=== PATIENT | female | born 1985 | race Caucasian/White ===

== ENCOUNTER 2018-10-12 17:36 | Observation (INO) | payer OTHER ==
[~2018-10-12] VITALS: Ht 175.3 cm; Wt 170.1 kg
[~2018-10-12 17:36] MED LIST changes: -ASPI-757 PO; -CEPH500T7 PO; -FERR159T PO; -OXCA300T59 PO; -OXYC-865 PO
--- NOTE | 2018-10-12 17:43 | ER Report ---
History and Physical Time Seen By MD: 17:43 HPI/ROS CHIEF COMPLAINT: Possible ankle fracture HISTORY OF PRESENT ILLNESS: This is a 33-year-old female presents to the emergency department via EMS for a possible right ankle fracture. Patient states that about 30 minute prior to arrival she was walking and a rubber tile that was on a stair, slipped, from under her left foot causing her to fall and her right foot rolled inward, causing severe pain and deformity of the ankle. EMS was called. EMS did give her 100 g of IV fentanyl prior to arrival. She denies hitting her head, she states she fell onto her bottom. No nausea or vomiting. No visual changes. No chest pain or shortness of breath. There is an obvious deformity to the right ankle, with what appears to be an open fracture on the medial aspect with adipose tissue. REVIEW OF SYSTEMS: Constitutional: No fever, no chills. Eyes: No discharge. ENT: No sore throat. Cardiovascular: No chest pain, no palpitations. Respiratory: No cough, no shortness of breath. Gastrointestinal: No abdominal pain, no vomiting. Genitourinary: No hematuria. Musculoskeletal: As above. Skin: No rashes. Neurological: No headache. Allergies: Coded Allergies: No Known Allergies (Verified Allergy, Unknown, 10/12/18) Home Meds Reported Medications Ferrous Sulfate, Dried (IRON) 159 Mg Tablet.er, 159 MG PO QDAY 10/12/18 Oxcarbazepine (OXCARBAZEPINE) 300 Mg Tablet, 300 MG PO QDAY 10/12/18 Multivitamin (DAILY MULTIPLE VITAMIN) 1 Each Tablet, 1 EACH PO 10/04/14 Citalopram Hydrobromide (CITALOPRAM HBR) 20 Mg Tablet, 40 MG PO QDAY, #5 TAB TAKE 1 TABLET BY MOUTH EVERY DAY 10/04/14 Past Medical/Surgical History The patient has no significant past medical history. Reviewed Nurses Notes: Yes Hx Smoking: No Smoking Status: Never Smoker Hx Substance Use Disorder: No Hx Alcohol Use: No Constitutional Vital Sign - Last 24 Hours 10/12/18 10/12/18 10/12/18 10/12/18 17:36 17:38 17:45 17:45 Temp 97.7 Pulse 60 62 Resp 14 B/P (MAP) 136/96 (109) 144/104 (117) 144/104 Pulse Ox 93 O2 Delivery Room Air 10/12/18 10/12/18 10/12/18 10/12/18 18:00 18:06 18:15 18:30 Pulse 61 Resp 8 B/P (MAP) 125/87 (100) 171/145 (154) 154/130 (138) Pulse Ox 98 10/12/18 10/12/18 18:36 18:41 Pulse 66 64 Resp 12 B/P (MAP) 141/88 (105) Pulse Ox 97 97 Physical Exam General Appearance: The patient is alert, has no immediate need for airway protection and no signs of toxicity. Eyes: Pupils equal and round no pallor or injection. ENT, Mouth: Mucous membranes are moist. Respiratory: There are no retractions, lungs are clear to auscultation. Cardiovascular: Regular rate and rhythm, no murmurs, clicks or rubs. Gastrointestinal: Abdomen is round, soft and non tender, no masses, bowel sounds normal. Neurological: Alert and oriented 4. Moving all extremities. Following all commands. No focal neuro deficits. Skin: 0.5 cm open wound to the medial malleolus, with adipose tissue exposed. There is also an abrasion to the anterior aspect of the distal leg. Musculoskeletal: Neck is supple non tender. Extremities obvious deformity with appears to be a posterior and lateral dislocation to the right ankle, CMS intact, capillary refill slightly delayed when compared to the left foot, ~4-5sec. DIFFERENTIAL DIAGNOSIS: After history and physical exam differential diagnosis was considered for dislocation, fracture, open fracture. Medical Decision Making Data Points Result Diagram: 10/12/18185610/12/181856 Laboratory Hematology Test 10/12/18 18:57 Red Blood Count 5.04 M/uL (4.17-5.56) Mean Corpuscular Volume 83.8 fL (80.0-96.0) Mean Corpuscular Hemoglobin 27.7 pg (26.0-33.0) Mean Corpuscular Hemoglobin Concent 33.1 g/dL (32.0-36.0) Red Cell Distribution Width 13.4 % (11.5-14.5) Mean Platelet Volume 8.2 fL (7.2-11.1) Neutrophils (%) (Auto) 77.1 % (39.4-72.5) Lymphocytes (%) (Auto) 17.0 % (17.6-49.6) Monocytes (%) (Auto) 4.8 % (4.1-12.4) Eosinophils (%) (Auto) 0.5 % (0.4-6.7) Basophils (%) (Auto) 0.6 % (0.3-1.4) Nucleated RBC Relative Count (auto) 0.0 /100WBC Neutrophils # (Auto) 11.1 K/uL (2.0-7.4) Lymphocytes # (Auto) 2.5 K/uL (1.3-3.6) Monocytes # (Auto) 0.7 K/uL (0.3-1.0) Eosinophils # (Auto) 0.1 K/uL (0.0-0.5) Basophils # (Auto) 0.1 K/uL (0.0-0.1) Nucleated RBC Absolute Count (auto) 0.00 K/uL Sodium Level 137 mmol/L (137-145) Potassium Level 4.0 mmol/L (3.5-5.0) Chloride Level 105 mmol/L (98-107) Carbon Dioxide Level 24 mmol/L (22-31) Blood Urea Nitrogen 12 mg/dl (7-18) Creatinine 0.60 mg/dl (0.52-1.04) Glomerular Filtration Rate Calc > 60.0 Random Glucose 107 mg/dl (75-110) Calcium Level 8.6 mg/dl (8.4-10.2) Total Bilirubin 0.4 mg/dl (0.2-1.3) Aspartate Amino Transf (AST/SGOT) 22 U/L (0-35) Alanine Aminotransferase (ALT/SGPT) 30 U/L (0-56) Alkaline Phosphatase 112 U/L (0-126) Total Protein 6.9 g/dl (6.3-8.2) Albumin 4.0 g/dl (3.5-5.0) Chemistry Test 10/12/18 18:57 White Blood Count 14.4 k/uL (4.5-11.0) Red Blood Count 5.04 M/uL (4.17-5.56) Hemoglobin 14.0 g/dL (12.0-16.0) Hematocrit 42.2 % (34.0-47.0) Mean Corpuscular Volume 83.8 fL (80.0-96.0) Mean Corpuscular Hemoglobin 27.7 pg (26.0-33.0) Mean Corpuscular Hemoglobin Concent 33.1 g/dL (32.0-36.0) Red Cell Distribution Width 13.4 % (11.5-14.5) Platelet Count 259 K/uL (150-450) Mean Platelet Volume 8.2 fL (7.2-11.1) Neutrophils (%) (Auto) 77.1 % (39.4-72.5) Lymphocytes (%) (Auto) 17.0 % (17.6-49.6) Monocytes (%) (Auto) 4.8 % (4.1-12.4) Eosinophils (%) (Auto) 0.5 % (0.4-6.7) Basophils (%) (Auto) 0.6 % (0.3-1.4) Nucleated RBC Relative Count (auto) 0.0 /100WBC Neutrophils # (Auto) 11.1 K/uL (2.0-7.4) Lymphocytes # (Auto) 2.5 K/uL (1.3-3.6) Monocytes # (Auto) 0.7 K/uL (0.3-1.0) Eosinophils # (Auto) 0.1 K/uL (0.0-0.5) Basophils # (Auto) 0.1 K/uL (0.0-0.1) Nucleated RBC Absolute Count (auto) 0.00 K/uL Glomerular Filtration Rate Calc > 60.0 Calcium Level 8.6 mg/dl (8.4-10.2) Total Bilirubin 0.4 mg/dl (0.2-1.3) Aspartate Amino Transf (AST/SGOT) 22 U/L (0-35) Alanine Aminotransferase (ALT/SGPT) 30 U/L (0-56) Alkaline Phosphatase 112 U/L (0-126) Total Protein 6.9 g/dl (6.3-8.2) Albumin 4.0 g/dl (3.5-5.0) EKG/Imaging Imaging Location: [facility] [place] Patient: Samantha Dixon : 1985 Visit/Account:[id number] Date of Sevice: 10/12/2018 TIBIA FIBULA RIGHT HISTORY: Fall. Fracture. COMPARISON: None FINDINGS: Complex fracture dislocation at the ankle discussed on ankle x-ray examination including a comminuted, mildly displaced fracture the distal fibula. No proximal tibial or fibular fracture. IMPRESSION: 1. Complex fracture dislocation at the ankle including a comminuted, mildly displaced fracture of the distal fibula. Report Dictated By: Johnathon Oates MD at 10/12/2018 7:03 PM Report E-Signed By: Johnathon Oates MD at 10/12/2018 7:04 PM WSN:[email or web address] Location: [facility] [place] Patient: Smaantha Dixon : 1985 Visit/Account:[id number] Date of Sevice: 10/12/2018 KNEE 3 VIEW RIGHT HISTORY: Fall COMPARISON: None FINDINGS: Right knee: No acute fracture or dislocation. No significant degenerative changes. No evidence of AVN. No joint effusion. No loose body. IMPRESSION: 1. Normal Report Dictated By: Johnathon Oates MD at 10/12/2018 7:02 PM Report E-Signed By: Johnathon Oates MD at 10/12/2018 7:02 PM WSN:[email or web address] Location: [facility] [place] Patient: Samantha Dixon : 1985 Visit/Account:[id number] Date of Sev: 10/12/2018 ANKLE 3 VIEW MIN RIGHT HISTORY: Fall. Injury. COMPARISON: None FINDINGS: Complex fracture dislocation of the ankle with anterior-medial disloc ation of the tibia in relation to the talus. Comminuted, mildly displaced fracture of the distal fibular shaft. Marked widening of the syndesmosis. IMPRESSION: 1. Complex fracture dislocation at the ankle with marked widening of the syndesmosis. Report Dictated By: Johnathon Oates MD at 10/12/2018 6:56 PM Report E-Signed By: Johnathon Oates MD at 10/12/2018 7:01 PM [facility] ED Course/Re-evaluation Clinical Indication for ER IV: Hydration, IV Access ED Course Patient was admitted to room. A history and physical were obtained. Differential diagnoses were considered. An IV was started via EMS, patient received 100 g IV fentanyl and round. CBC showing white count 14.4, likely a stress response otherwise labs unremarkable. Showing Upon arrival there was an obvious deformity to the right foot and ankle. An x-ray of the right ankle showing a complex fracture dislocation at the ankle including a comminuted, mildly displaced fracture of the distal fibula, open wound with adipose tissue to the right medial malleolus. A 1 L normal saline bolus was given. 1 g of Ancef was given. Patient's tetanus was updated. Patient was given 4 mg IV Zofran, total of 2 mg IV Dilaudid while in the emergency department. Last oral intake was at 1:30 this afternoon. I did review the results with the patient, I also contacted Dr. Ayala, the patient is going to the OR. 10/12/2018 7:15:34 pm I did speak with Dr. Ayala, the orthopedist operations lead he is going to review the images. 10/12/2018 8:38:21 pm the patient is going to the OR. Decision to Disposition Date: Oct 12, 2018 Decision to Disposition Time: 20:38 Depart Departure Latest Vital Signs Vital Signs Date Time Temp Pulse Resp B/P (MAP) Pulse Ox O2 Delivery O2 Flow Rate FiO2 10/12/18 18:41 64 12 141/88 (105) 97 10/12/18 17:45 97.7 Room Air Impression: Primary Impression: Fracture dislocation of right ankle Condition: Improved Disposition: ADMIT FROM ER TO OR Problem Qualifiers Primary Impression: Fracture dislocation of right ankle Encounter type: initial encounter Fracture type: open Open fracture type: open type I or II Qualified Codes: S82.891B - Other fracture of right lower leg, initial encounter for open fracture type I or II MIKE CATALAN JAVA LEAD DEVELOPER- Oct 12, 2018 17:43
[2018-10-12] MEDS ORDERED: NS(*) 0.9% 1000 ML BAG 1,000 ML IV ONE (17:50)
[2018-10-12] MEDS ORDERED: ONDANSETRON 4 MG/2 ML VIAL IVP ONE (17:50)
[2018-10-12] MEDS ORDERED: HYDROMORPHONE HCL 1 MG/ML SYRINGE IVP ONE ×2 (17:50→19:15)
[2018-10-12] MEDS ORDERED: DIPHTH/TETANUS/ACEL. PERTUSSIS IM ONLY ONE (17:50)
[2018-10-12] MEDS ORDERED: ceFAZolin(*) 1 GM VIAL 1 GM in NS(*) 0.9% 100 ML ADDVANT BAG 100 ML IV ONE (17:50)
[2018-10-12] MEDS ORDERED: FERR159T PO (17:55)
[2018-10-12] MEDS ORDERED: OXCA300T59 PO (17:55)
--- NOTE | 2018-10-12 19:05 | RADIOLOGY IMAGING REPORT ---
FACILITY: [facility] - [place] PATIENT NAME: Samantha Dixon : 1985 MR: [id number] V: [id number] EXAM DATE: ORDERING PHYSICIAN: MIKE CATALAN TECHNOLOGIST: Location: [facility] [place] Patient: Samantha Dixon : 1985 Visit/Account:[id number] Date of Sevice: 10/12/2018 ANKLE 3 VIEW MIN RIGHT HISTORY: Fall. Injury. COMPARISON: None FINDINGS: Complex fracture dislocation of the ankle with anterior-medial dislocation of the tibia in relation to the talus. Comminuted, mildly displaced fracture of the distal fibular shaft. Marked wi dening of the syndesmosis. IMPRESSION: 1. Complex fracture dislocation at the ankle with marked widening of the syndesmosis. Report Dictated By: Johnathon Oates MD at 10/12/2018 6:56 PM Report E-Signed By: Johnathon Oates MD at 10/12/2018 7:01 PM WSN:[email or web address]
--- NOTE | 2018-10-12 19:06 | RADIOLOGY IMAGING REPORT ---
FACILITY: [facility] - [place], [place] PATIENT NAME: Samantha Dixon : 1985 MR: [id number] V: [id number] EXAM DATE: ORDERING PHYSICIAN: MIKE CATALAN TECHNOLOGIST: Location: [facility] Patient: Samantha Dixon : 1985 Visit/Account:[id number] Date of Sevice: 10/12/2018 KNEE 3 VIEW RIGHT HISTORY: Fall COMPARISON: None FINDINGS: Right knee: No acute fracture or dislocation. No significant degenerative changes. No evidence of AVN . No joint effusion. No loose body. IMPRESSION: 1. Normal Report Dictated By: Johnathon Oates MD at 10/12/2018 7:02 PM Report E-Signed By: Johnathon Oates MD at 10/12/2018 7:02 PM WSN:[email or web address]
--- NOTE | 2018-10-12 19:08 | RADIOLOGY IMAGING REPORT ---
FACILITY: [facility] - [place] PATIENT NAME: Samantha Dixon : 1985 MR: [id number] V: [id number] EXAM DATE: ORDERING PHYSICIAN: MIKE CATALAN TECHNOLOGIST: Location: [facility] [place] Patient: Samantha Dixon : 1985 Visit/Account:[id number] Date of Sevice: 10/12/2018 TIBIA FIBULA RIGHT HISTORY: Fall. Fracture. COMPARISON: None FINDINGS: Complex fracture dislocation at the ankle discussed on ankle x-ray examination including a comminuted, mildly displaced fracture the distal fibula. No proximal tibial or fibular fracture. IMPRESSION: 1. Complex fracture dislocation at the ankle including a comminuted, mildly displaced fracture of th e distal fibula. Report Dictated By: Johnathon Oates MD at 10/12/2018 7:03 PM Report E-Signed By: Johnathon Oates MD at 10/12/2018 7:04 PM WSN:[email or web address]
[2018-10-12 19:09] LABS: PLATELET COUNT, AUTOMATED 259 K/uL (150-450)
[2018-10-12] MEDS ORDERED: NORMOSOL R SOLN(*) 1000 ML BAG 1,000 ML IV ONE (19:54)
[2018-10-12] MEDS ORDERED: FAMOTIDINE(*) 20MG/50ML PREMIX 50 ML IVPB ONE (19:54)
[2018-10-12] MEDS ORDERED: KETAMINE HCL-NS 50 MG/5 ML SYR ONE (20:04)
[2018-10-12] MEDS ORDERED: LIDOCAINE MPF 1% 5 ML VIAL ONE (20:04)
[2018-10-12] MEDS ORDERED: PROPOFOL EMUL(*) 10MG/ML 20 ML 20 ML ONE (20:04)
[2018-10-12] MEDS ORDERED: fentaNYL CITR 100 MCG/2 ML AMP ONE (20:04)
[2018-10-12] MEDS ORDERED: ONDANSETRON 4 MG/2 ML VIAL ONE (20:04)
[2018-10-12] MEDS ORDERED: DEXAMETHASONE SOD PHOS 10MG/ML ONE (20:04)
[2018-10-12] MEDS ORDERED: LIDOCAINE 2% IV 100 MG/5ML SYR ONE (20:05)
[2018-10-12] MEDS ORDERED: SUCCINYLCHOL CHL 200MG/10ML VL ONE (20:21)
[2018-10-12] MEDS ORDERED: ROPIVACAINE 0.2% 20 ML VIAL ONE (20:54)
[2018-10-12] MEDS ORDERED: BUPIVACAIN 0.25% INJ 50ML VIAL ONE (20:54)
[2018-10-12] MEDS ORDERED: SUGAMMADEX SOD 200 MG/2 ML SDV ONE (22:37)
--- NOTE | 2018-10-12 23:08 | RADIOLOGY IMAGING REPORT ---
FACILITY: [facility] [place] PATIENT NAME: Samantha Dixon : 1985 MR: [id number] V: [id number] EXAM DATE: ORDERING PHYSICIAN: MONICA AYALA TECHNOLOGIST: Location: [facility] [place] Patient: Samantha Dixon : 1985 Visit/Account:[id number] Date of Sevice: 10/12/2018 C-ARM FLUORO 1 HR Indication: Open reduction internal fixation right ankle. Procedure: Fluoroscopic guidance was provided for Dr. Ayala. Fluoroscopy dose: 0.4072 Gycm2 dose area product Findings: Images demonstrate a fracture of the distal fibular diaphysis with subsequent placement of a plate and screws and improved alignment. 2 long screws traverse the tibia and fibula. IMPRESSION: Fluoroscopy was provided. Report Dictated By: Juany Tim at 10/12/2018 11:03 PM Report E-Signed By: Juany Tim at 10/12/2018 11:05 PM WSN:[id number]
[2018-10-13] VITALS (13 sets, daily range): BP systolic 113–143; BP diastolic 66–94; Ht 175.3 cm; Wt 170.1 kg
[2018-10-13] MEDS ORDERED: MORPHINE 2 MG/ML SYR ONE (00:40)
[2018-10-13] MEDS ORDERED: ceFAZolin(*) 2GM/D5W 50ML 50 ML IVPB ONE (01:14)
[2018-10-13] MEDS ORDERED: MORPHINE 2 MG/ML SYR IVP PRN (01:20)
[2018-10-13] MEDS ORDERED: ONDANSETRON 4 MG/2 ML VIAL IVP PRN (01:20)
[2018-10-13] MEDS ORDERED: IBUPROFEN 800 MG TAB PO PRN (01:20)
[2018-10-13] MEDS ORDERED: FLUSH 10 ML SYR IVP PRN (01:20)
[2018-10-13] MEDS ORDERED: MAGNESIUM HYDROXIDE* 30ML UDCP PO PRN (01:20)
[2018-10-13] MEDS ORDERED: NORMOSOL R SOLN(*) 1000 ML BAG 1,000 ML IV PRN (01:25)
[2018-10-13] MEDS: ceFAZolin(*) 2GM/D5W 50ML 50 ML IVPB SCH ×3 (01:40→16:19)
--- NOTE | 2018-10-13 02:44 | Hospitalist Progress Note ---
Subjective Progress Notes Subjective Patient sen post-op. Reviewed PMHx (depression, obesity) and medications (citalopram, oxcarbazepine). At present, she reports surgical site pain and some dry mouth, but denies any other complaints - no CP/SOB/N/V. She has no history of DVT/PE. She does not smoke. Physical Exam Vital Signs Date Time Temp Pulse Resp B/P (MAP) Pulse Ox O2 Delivery O2 Flow Rate FiO2 10/13/18 02:00 71 16 138/83 (101) 92 Nasal Cannula 2.0 10/13/18 01:00 98.0 Intake and Output 10/13/18 07:00 Intake Total 4100 ml Output Total 50 ml Balance 4050 ml Intake Oral 1200 ml IV Total 2900 ml Output Estimated Blood Loss 50 ml # Voids 1 General Appearance: Alert, Awake Cardiovascular: Regular Rate and Rhythm Respiratory: Clear to Auscultation Psych: Alert & Oriented X3 Result Diagram: 10/12/18185610/12/181856 Assessment and Plan Problems: (1) Depression Status: Chronic Assessment & Plan: Will continue her citalopram 40mg daily and oxcarbazepine 300mg daily. (2) Ankle fracture Status: Acute Assessment & Plan: She will be at some increased risk for DVT due to her obesity, but it appears she will be mobilizing fairly well. It may be reasonable to use aspirin 325mg daily to reduce her risk. Exam Sepsis Risk: No Definite Risk SINDY WRIGHT MD Oct 13, 2018 02:44
[2018-10-13] MEDS ORDERED: PROMETHAZINE 25 MG/ML 1 ML AMP IVP PRN (02:45)
--- NOTE | 2018-10-13 05:51 | HISTORY AND PHYSICAL ---
DATE OF ADMISSION: October 13, 2018 HISTORY OF PRESENT ILLNESS Ms. Dixon is a 33-year-old obese female who was seen evaluated in the emergency room and found to have an open, displaced right ankle fracture-dislocation. Orthopedics was consulted. She had no other complaints. She was walking tonight and tripped on her steps and fell. She inverted her ankle and was unable to ambulate. PAST MEDICAL HISTORY 1. Morbid obesity. 2. Depression. MEDICATIONS 1. Citalopram. 2. Oxcarbazepine. ALLERGIES No known drug allergies. PAST SURGICAL HISTORY Denies. SOCIAL HISTORY Denies tobacco or alcohol. 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 She lives in a trailer with about three steps. REVIEW OF SYSTEMS Positive for right ankle pain. PHYSICAL EXAMINATION VITAL SIGNS: Blood pressure 142/79, pulse 73, respirations 14. HEENT: Within normal limits. CHEST: Clear to auscultation. HEART: Regular rate and rhythm. ABDOMEN: Obese, soft, nontender, nondistended. EXTREMITIES: Demonstrate a severe deformity of the right ankle. The foot is turned about 90 degrees and there is tibiotalar dislocation. There is a small 1 cm laceration over the medial malleolar region with some adipose tissue. FHL and EHL are very difficult for her to perform, but she can perform, and she has some slight diminished sensations in the deep and superficial peroneal nerves; can feel her tibial nerve. LABORATORY DATA White count 14.4, hematocrit 42.2, platelets 259. Glucose 107. X-rays demonstrate a significantly comminuted fibula fracture with disrupted syndesmosis and tibiotalar dislocation. ASSESSMENT A 33-year-old female with open tibiotalar fracture-dislocation. PLAN At this point, discussed the risks, benefits, alternatives, and possible complications of surgical and nonsurgical intervention with her, and she wished to proceed with surgical intervention. Will plan on ORIF of a right fibula fracture as well as syndesmosis, as well as I and D of the open fracture, reduction of the tibiotalar dislocation, as soon as possible. SRIDHAR
--- NOTE | 2018-10-13 06:25 | OPERATIVE REPORT 1 ---
EVENT DATE: October 12, 2018 SURGEON: Wale Ayala MD ANESTHESIOLOGIST: Quinten Kuhn DO ANESTHESIA: LMA. JUNIOR HIGH SCHOOL TEACHER: Bo Bernal PA-C PREOPERATIVE DIAGNOSES 1. Open distal fibula fracture with syndesmotic disruption. 2. Tibiotalar dislocation. POSTOPERATIVE DIAGNOSES 1. Open distal fibula fracture with syndesmotic disruption. 2. Tibiotalar dislocation 3. Open right ankle fracture-dislocation. PROCEDURE PERFORMED 1. Open reduction and internal fixation, right comminuted fibula fracture. 2. Open reduction and internal fixation, syndesmosis. 3. Reduction, tibiotalar dislocation. 4. Irrigation and debridement, open fracture and open tibiotalar joint. ESTIMATED BLOOD LOSS Minimal. DRAINS None. SPECIMENS None. COMPLICATIONS None. IMPLANTS USED Synthes one third tubular 10-hole plate with nine fully threaded 3.5 cortical screws. Fluoroscopy was utilized. TOURNIQUET TIME See anesthesia record. HISTORY Ms. Dixon is a 33-year-old morbidly obese female who, unfortunately, sustained a fall, sustaining a fracture-dislocation of her right ankle, which was open medially. She was seen and evaluated in the orthopedic surgery clinic, found to have a medial laceration with communication to the joint and a significant comminuted distal fibular fracture with tibiotalar dislocation. Following discussion of risks, benefits, alternatives, and possible complications of surgical and nonsurgical intervention, she wished to proceed with surgical intervention. DESCRIPTION OF PROCEDURE Patient was brought to the operating room and placed on the operating table in the supine position. Proper time-out was performed, identifying patient, limb of surgery, and surgical procedure. Patient was given preoperative IV antibiotics and underwent LMA anesthesia. A well-padded upper thigh tourniquet was placed on the right lower extremity. The right lower extremity was prepped and draped in sterile orthopedic fashion. A double prep was prepped with Hibiclens and ChloraPrep. Once complete, the medial laceration was extended anterior and posterior in line with the laceration. The edges were slightly macerated, but this was minimal. There was no gross contamination, but this dissected directly down to the tibiotalar joint, which we could palpate. The wound was copiously irrigated with 6L of sterile saline and pulsed lavage. This included the open wound as well as the tibiotalar joint. Once this was completely irrigated and debrided, the soft tissue was closed with 3-0 nylon non-inverted vertical mattress sutures. This was then dried and covered with a Tegaderm OpSite. Once complete, the fracture was identified under fluoroscopic visualization. A lateral incision was made extending from the syndesmosis proximally. The fracture had already dissected the majority of the soft tissues, and this was bluntly dissected proximally and distally. The fracture was identified and was severely comminuted, more so than we could appreciate on the fracture. There were two large butterfly fragments posteriorly, and then comminution anteriorly with fragments in the soft tissue. The fracture was distracted and fracture hematoma was cleared with suctioning, irrigation, a curette and #15 blade scalpel. We then performed a closed reduction on the fracture. Again, we were missing bone fragments anteriorly that did not jurado in, and posteriorly there were two large butterfly fragments. These were keyed in with a pointed reduction tenaculum. We brought our fibula out to length and checked this under AP and lateral view, and felt it to be in acceptable alignment. A 10-hole plate was then placed laterally and contoured to the fibula. This was right at the spiraling and the rotation of the fibula, so we tried to match this up as anatomically as possible. Once this was performed, this was secured proximally, checked under fluoroscopic visualization, and we felt like we were out to length, had good alignment, and this was then fixed distally. We then passed three #2 FiberWire sutures around the butterfly fragments, since they were too small to incorporate with bony fixation, and we passed two of these around the butterfly fragments, trying to incorporate these and get them juxtaposed to the fracture site. We then placed one lag screw through the plate utilizing 2.5 and 3.5 drill bit technique, and this had good purchase. The remaining screw holes were filled with fully threaded cortical screws. We started to drift a little bit posterior on the proximal aspect of the fracture fragment. We had to in order to get our alignment proper for the distal syndesmotic screw fixation. Once this was complete, our attention was drawn to the syndesmotic disruption. The tibiotalar joint was reduced with the ankle in 90 degrees of dorsiflexion with a Regan Margarito tong. This was checked on our mortise view, and once we had a symmetric tibiotalar joint, the 2.5 drill bit was utilized to drill four cortices, and fully threaded cortical screws were placed, two of them, which were four cortices. Once this was complete, we removed the Regan Margarito tong and compared. There was no diastasis of the syndesmosis, and the mortise was symmetric. A Cotton test was performed. There was negative diastasis of the syndesmosis. Once this was complete, the wound was copiously irrigated. Zero Vicryl [id number] sutures were utilized to reapproximate soft tissue gentle over the plate. The subcutaneous tissues were closed with 2-0 Vicryl, skin reapproximated with 3-0 nylon non-inverting vertical mattress sutures. Standard postoperative dressing and three-way posterior long leg splint were applied. Ms. Dixon tolerated the procedure well, was extubated and transferred to the PACU in stable condition. She will be placed non-weightbearing. We will admit her for mobility, gait training, and IV antibiotic, and she will be admitted to our service with medicine consultation. SRIDHAR
[2018-10-13] MEDS ORDERED: ASPIRIN 325 MG TAB PO SCH (09:00)
[2018-10-13] MEDS ORDERED: ASPI-757 PO (10:55)
--- NOTE | 2018-10-13 10:56 | Hospitalist Progress Note ---
Subjective Progress Notes Subjective She was admitted post-operative ankle fracture repair. She has no complaints this morning. She had no acute events overnight. Patient Complains of: Cardiovascular: No: Chest Pain Respiratory: No: Shortness of Breath Physical Exam Vital Signs Date Time Temp Pulse Resp B/P (MAP) Pulse Ox O2 Delivery O2 Flow Rate FiO2 10/13/18 06:59 98.6 76 16 138/94 (109) 95 Nasal Cannula 10/13/18 06:14 2.0 Intake and Output 10/13/18 06:59 Intake Total 5800 ml Output Total 50 ml Balance 5750 ml Intake Oral 1800 ml IV Total 4000 ml Output Estimated Blood Loss 50 ml # Voids 3 General Appearance: Alert, Awake, No Acute Distress, Afebrile Neuro: No Gross deficits Cardiovascular: Regular Rate and Rhythm Respiratory: No Respiratory Distress, Clear to Auscultation Psych: Alert & Oriented X3, Appropriate Mood & Affect Result Diagram: 10/12/18185610/12/181856 Assessment and Plan Problems: (1) Ankle fracture Status: Acute Assessment & Plan: She will be at some increased risk for DVT due to her obesity, but it appears she will be mobilizing fairly well. It may be reasonable to use aspirin 325mg daily to reduce her risk. (2) Depression Status: Chronic Assessment & Plan: Will continue her citalopram 40mg daily and oxcarbazepine 300mg daily. (3) Morbid obesity with BMI of 50.0-59.9, adult Exam Sepsis Risk: No Definite Risk GEORGETTE KIM THEATRE INSTRUCTOR Oct 13, 2018 10:56
--- NOTE | 2018-10-13 14:20 | NUR ---
Physical Therapy Impression PT eval. Pt demonstrates safety with transfers and compliance with NWB. Pt educated on appropriate equipment, provided a list, and scripts requested from MD for equipment. Discussed safest strategy for stair negotiation with returned verbal understanding. Pt safe for DC from a mobility standpoint. Physical Therapy Goals Patient's Goals
[2018-10-13] MEDS ORDERED: CEPH500T7 PO (16:34)
[2018-10-13] MEDS ORDERED: OXYC-865 PO (16:35)
[2018-10-13] MEDS ORDERED: OXcarbazepine 300 MG TAB PO SCH (21:00)
[2018-10-13] MEDS ORDERED: CITALOPRAM HYDROBROM 20 MG TAB PO SCH (21:00)
--- NOTE | 2018-10-14 10:28 | DISCHARGE SUMMARY ---
ADMISSION DATE: October 12, 2018 DISCHARGE DATE: October 13, 2018 ADMISSION DIAGNOSES Status post incision and drainage and open reduction and internal fixation right ankle open fracture/dislocation. SURGEON Wale Ayala MD CONSULTS 1. Hospitalist service. 2. Physical Therapy. COMPLICATIONS None. HISTORY Ms. Dixon is a 33-year-old female. Unfortunately, sustained an open fracture/dislocation of her right ankle. On 10/12/18, she was brought in urgently to the operating room to undergo irrigation and debridement and ORIF of fracture/dislocation. She did well overnight, had no major events and was seen and evaluated by Physical Therapy who came up with a discharge plan for mobility and following clearance from Physical Therapy, she will be discharged home. On final examination, she is afebrile, vital signs are stable. The splint in good condition. FHL and EHL are intact. Sensation and peroneal nerves are intact. Brisk capillary refill in her digits. ASSESSMENT Postop day #1 status post incision and drainage and open reduction and internal fixation right ankle fracture/dislocation. PLAN She sill be discharged to home this evening after a third antibiotic IV dose for open fracture. We have prescribed on discharge Percocet 5/325 mg 1 to 2 p.o. q 6 hours p.r.n. pain. She is to strictly elevated her leg. We have also given her antibiotic Keflex 500 mg q.i.d. x 2 weeks. and she is strictly non-weight bearing. Will follow up with me in 14 days. MTDD
== END 2018-10-13 16:27 | disposition home or self-care (01) ==
LOC: ER 17:41 → OR 20:39 → INTOOBSV 10-13 00:20 → MED 10-13 00:20
PROVIDERS: ADMIT Orthopaedic Surgery; ATTEND Orthopaedic Surgery
DX: S82.61XB Displaced fracture of lateral malleolus of right fibula, initial encounter for open fracture type I or II (principal); S82.891B Other fracture of right lower leg, initial encounter for open fracture type I or II; S93.04XA Dislocation of right ankle joint, initial encounter; W01.0XXA Fall on same level from slipping, tripping and stumbling without subsequent striking against object, initial encounter
CPT/HCPCS: 11010; 27792; 27829; 73562; 73590; 73610; 76000; 84703; 85025; 90471; 90715; 96365; 96367; 96375; 97163; 99285; C1713; G0378; J0330; J0690; J1100; J1170; J2001; J2270; J2405; J2704; J3010; J3490; J7030; J7050; 82040; 82247; 82310; 82374; 82435; 82565; 82947; 84075; 84132; 84155; 84295; 84450; 84460; 84520; J2795

== ENCOUNTER → 2018-10-12 | Outpatient (CLI) | payer OTHER ==
[~2018-10-12] MED LIST: ASPI-757 PO; CEPH500T7 PO; CITA-145 PO; FERR159T PO; MULT-865 PO; OXCA300T59 PO; OXYC-865 PO
[2018-10-13 14:25] VITALS: BMI 55.4
== END ==
LOC: AMB 16:46
PROVIDERS: ATTEND Nurse Practitioner
DX: M25.571 Pain in right ankle and joints of right foot (principal); S91.031A Puncture wound without foreign body, right ankle, initial encounter
CPT/HCPCS: A0425; A0433

== ENCOUNTER 2018-11-07 17:29 | Emergency (ER) | payer OTHER ==
[2018-10-13 14:25] VITALS: BMI 55.4
[~2018-11-07 17:29] MED LIST changes: +ASPI-757 PO; +CEPH500T7 PO; +FERR159T PO; +OXCA300T59 PO; +OXYC-865 PO
--- NOTE | 2018-11-07 18:36 | RADIOLOGY IMAGING REPORT ---
FACILITY: [facility] - [place] PATIENT NAME: Samantha Dixon : 1985 MR: [id number] V: [id number] EXAM DATE: ORDERING PHYSICIAN: KIT TAYLOR TECHNOLOGIST: Location: [facility] - [place] Patient: Samantha Dixon : 1985 Visit/Account:[id number] Date of Sevice: 11/07/2018 Examination: KNEE 4 VIEW RIGHT Comparison: 10/12/2018 History: fall with pain Findings: No fracture. Alignment is within normal limits. Joint spaces are preserved with minimal pat ellar pole spurring. No joint effusion. Prepatellar and pretibial soft tissue swelling. No radiopaque foreign body. IMPRESSION: 1. No right knee fracture or malalignment. 2. Soft tissue swelling. Report Dictated By: Cristo Hartmann MD at 11/07/2018 6:31 PM Report E-Signed By: Cristo Hartmann MD at 11/07/2018 6:33 PM WSN:[id number]
[2018-11-07 18:42] VITALS: BP 143/105
--- NOTE | 2018-11-07 18:50 | ER Report ---
History and Physical Time Seen By MD: 17:30 Hx. of Stated Complaint: PATIENT FELL ON TO HER RIGHT KNEE EARLIER TODAY. HPI/ROS CHIEF COMPLAINT: Right knee pain HISTORY OF PRESENT ILLNESS: 33-year-old female patient presents to emergency room with complaint of right knee pain. Patient states that she was going down the ramp outside of her house on her scooter. Patient states when she got to the bottom of the ramp the scooter twisted on her causing her to fall onto her right knee. Patient states that she had fair amount of pain but was able to get up and go to work. Patient states that after sitting for a few hours at work that she was unable to put any weight on her knee. Patient states that when she is sitting there that she has no pain. She has no pain with flexion or extension. She states pain is worse which puts weight on her knee. Patient denies any numbness or tingling. REVIEW OF SYSTEMS: Respiratory: No cough, no dyspnea. Cardiovascular: No chest pain, no palpitations. Gastrointestinal: No vomiting, no abdominal pain. Musculoskeletal: As noted above Allergies: Coded Allergies: No Known Allergies (Verified Allergy, Unknown, 10/12/18) Home Meds Active Scripts Aspirin (ASPIRIN) 325 Mg Tablet, 325 MG PO QDAY, #30 TAB Prov:GEORGETTE KIM Jeramy INFORMATION SPECIALIST 10/13/18 Reported Medications Oxycodone Hcl/Acetaminophen (PERCOCET 5-325 MG TABLET) 1 Each Tablet, 1 EACH PO Q4H PRN for pain, #42 TAB 10/13/18 Cephalexin 500 Mg Tab (KEFLEX 500 MG TAB) 500 Mg Tablet, 500 MG PO Q6H, #56 TAB 10/13/18 Ferrous Sulfate, Dried (IRON) 159 Mg Tablet.er, 159 MG PO QDAY 10/12/18 Oxcarbazepine (OXCARBAZEPINE) 300 Mg Tablet, 300 MG PO QDAY 10/12/18 Multivitamin (DAILY MULTIPLE VITAMIN) 1 Each Tablet, 1 EACH PO 10/04/14 Citalopram Hydrobromide (CITALOPRAM HBR) 20 Mg Tablet, 40 MG PO QDAY, #5 TAB TAKE 1 TABLET BY MOUTH EVERY DAY 10/04/14 Past Medical/Surgical History Patient has a past medical history of open fracture the right ankle, depression. Patient has no pertinent surgical history. Reviewed Nurses Notes: Yes Hx Smoking: No Smoking Status: Never Smoker Hx Substance Use Disorder: No Hx Alcohol Use: No Constitutional Vital Sign - Last 24 Hours 11/07/18 11/07/18 11/07/18 17:37 18:42 18:42 Temp 98.7 Pulse 85 Resp 24 22 B/P (MAP) 144/93 143/105 (118) 143/105 (118) Pulse Ox 91 93 97 O2 Delivery Room Air Room Air Physical Exam General Appearance: The patient is alert, has no immediate need for airway protection and no current signs of toxicity Respiratory: Chest is non tender, lungs are clear to auscultation. Cardiac: regular rate and rhythm Gastrointestinal: Abdomen is soft and non tender, no masses, bowel sounds normal. Musculoskeletal: Neck: Neck is supple and non tender. Extremities have full range of motion and are non tender. Patient has significant amounts swelling to the right knee. Pain seems worse on the medial aspect. No laxity noted on exam. Skin: No rashes or lesions. DIFFERENTIAL DIAGNOSIS: After history and physical exam differential diagnosis w as considered for contusion, fracture, sprain. Medical Decision Making EKG/Imaging Imaging Examination: KNEE 4 VIEW RIGHT Comparison: 10/12/2018 History: fall with pain Findings: No fracture. Alignment is within normal limits. Joint spaces are preserved with minimal patellar pole spurring. No joint effusion. Prepatellar and pretibial soft tissue swelling. No radiopaque foreign body. IMPRESSION: 1. No right knee fracture or malalignment. 2. Soft tissue swelling. Report Dictated By: Cristo Hartmann MD at 11/07/2018 6:31 PM Report E-Signed By: Cristo Hartmann MD at 11/07/2018 6:33 PM ED Course/Re-evaluation ED Course Patient was admitted to an exam room, history and physical were obtained. Differential diagnoses were considered. On examination lungs are clear, heart is regular, abdomen soft nontender. Patient has swelling and bruising to the right knee. And x-rays done of the right knee which was negative for fracture. I di scussed the findings with the patient and her . I do have concerns with patient needing to use a scooter due to her ankle fracture that she will not be able to do that with the knee being bruises it is. We discussed doing a wheelchair. Wheelchairs were not available at this time of day and so called and talked with Kemi and Gordy. Both states they have "transfer chairs" that are likely wheelchairs but don't have the big back wheels. His recommendation that she uses a wheelchair while the knee is too painful to use the scooter. She is return to the scooter when she can tolerate it. She is follow-up with her primary care provider in a week. She states ibuprofen as needed for pain. She is return to emergency room if condition worsens. Patient verbalized understanding and agreement with plan. Decision to Disposition Date: Nov 07, 2018 Decision to Disposition Time: 18:50 Depart Departure Latest Vital Signs Vital Signs Date Time Temp Pulse Resp B/P (MAP) Pulse Ox O2 Delivery O2 Flow Rate FiO2 11/07/18 18:42 143/105 (118) 97 Room Air 11/07/18 18:42 22 11/07/18 17:37 98.7 85 Impression: Primary Impression: Knee contusion Condition: Improved Disposition: HOME OR SELF-CARE Referrals: CAIT ALFONSO (PCP) Departure Forms: Medications Reconciliation, Patient Portal Information, ER Transition Record Patient Instructions: Contusion in Adults (ED) Additional Instructions: Limit activity by pain. Ice the knee 2-3 times a day for 10-15 minutes. Get plenty of rest. Continue with Ibuprofen as needed for pain. Return to the ER if condition worsens. Follow up with your primary care provider in the next week. Problem Qualifiers Primary Impression: Knee contusion Encounter type: initial encounter Laterality: right Qualified Codes: S80.01XA - Contusion of right knee, initial encounter KIT TAYLOR Nov 07, 2018 18:50
== END 2018-11-07 18:55 | disposition home or self-care (01) ==
LOC: ER 17:43
DX: S80.01XA Contusion of right knee, initial encounter (principal)
CPT/HCPCS: 73564; 99283

== ENCOUNTER → 2018-11-27 | Outpatient (CLI) | payer OTHER ==
[2018-10-13 14:25] VITALS: BMI 55.4
--- NOTE | 2018-11-27 17:56 | RADIOLOGY IMAGING REPORT ---
FACILITY: [facility] PATIENT NAME: Samantha Dixon : 1985 MR: [id number] V: [id number] EXAM DATE: ORDERING PHYSICIAN: MONICA MORAES TECHNOLOGIST: Location: [facility] - [place] Patient: Samantha Dixon : 1985 Visit/Account:[id number] Date of Sevice: 11/27/2018 MRI right knee Indication: Knee pain Comparison: None available. Technique: Multiplanar, multisequence MRI examination is performed of the right knee without contrast . Findings: Medial compartment: Small undersurface tear peripheral posterior horn medial meniscus. Minimal chondral irregularity and thinning of the mid weightbearing medial femoral condyle cartilage. Lateral compartment: Mild undersurface fraying and irregularity posterior horn and posterior horn/body junction of the lat eral meniscus. The articular cartilage surfaces are unremarkable. Patellofemoral compartment: Partial thickness fissuring and irregularity medial margin lateral facet patella cartilage with under lying subchondral edema. Bones and marrow: No acute fracture or dislocation. Ligaments and tendons: ACL and PCL are intact. The extensor mechanism is intact. The MCL is intact. The iliotibial band, biceps femoris tendon, and the fibular collateral ligament is intact The popliteus tendon is also intact. Soft tissues: Small amount of fluid suprapatellar bursa. Extensive prepatellar soft tissue swelling may relate to prepatellar post rheumatic hemorrhagic bursi tis as there is heterogeneous signal noted. IMPRESSION: 1. Small undersurface tear peripheral posterior horn medial meniscus. 2. Prominent prepatellar soft tissue swelling may relate to prepatellar hemorrhagic bursitis. 3. Significant fissuring and irregularity involving the medial margin lateral facet patella cartilage . Report Dictated By: Riaz Emmanuel MD at 11/27/2018 5:41 PM Report E-Signed By: Riaz Emmanuel MD at 11/27/2018 5:52 PM WSN:[id number]
== END ==
LOC: MRI 01:44
PROVIDERS: ATTEND Orthopaedic Surgery
DX: S83.241A Other tear of medial meniscus, current injury, right knee, initial encounter (principal)

== ENCOUNTER 2018-12-26 00:37 | Day surgery (SDC) | payer OTHER ==
[2018-10-13 14:25] VITALS: Ht 175.3 cm; Wt 172.4 kg
[~2018-12-26] VITALS: Ht 175.3 cm; Wt 172.4 kg
[~2018-12-26 00:37] MED LIST changes: +ceFAZolin(*) 1 GM VIAL 3 GM in NS(*) 0.9% 100 ML BAG 100 ML IVPB ONE
[2018-12-26] MEDS ORDERED: ceFAZolin(*) 2GM/D5W 50ML 50 ML IVPB ONE (06:15)
[2018-12-26] MEDS ORDERED: FAMOTIDINE 20 MG TAB PO ONE (06:15)
[2018-12-26] MEDS ORDERED: MIDAZOLAM 2 MG/2 ML VIAL IVP PRN (06:15)
[2018-12-26] MEDS ORDERED: ceFAZolin(*) 1 GM VIAL 3 GM in NS(*) 0.9% 100 ML BAG 100 ML IVPB ONE ×2 (06:15)
[2018-12-26] MEDS ORDERED: LIDOCAINE/SOD BICARB 8.4% SYR ID ONE (06:15)
[2018-12-26] MEDS ORDERED: NORMOSOL R SOLN(*) 1000 ML BAG 1,000 ML IV PRN (06:15)
[2018-12-26] MEDS ORDERED: ROPIVACAINE 0.2% 20 ML VIAL ONE (06:22)
[2018-12-26 06:38] VITALS: BP 139/77
[2018-12-26] MEDS ORDERED: LIDOCAINE MPF 1% 5 ML VIAL ONE (06:49)
[2018-12-26] MEDS ORDERED: ONDANSETRON 4 MG/2 ML VIAL ONE ×2 (06:49→07:17)
[2018-12-26] MEDS ORDERED: PROPOFOL EMUL(*) 10MG/ML 20 ML 20 ML ONE (06:49)
[2018-12-26] MEDS ORDERED: DEXAMETHASONE SOD 4 MG/ML VIAL ONE (06:49)
[2018-12-26] MEDS ORDERED: fentaNYL CITR 100 MCG/2 ML AMP ONE (06:49)
[2018-12-26] MEDS ORDERED: KETAMINE HCL 200 MG/20 ML MDV ONE (06:52)
[2018-12-26] MEDS ORDERED: BUPIVACAIN 0.25% INJ 50ML VIAL ONE (06:58)
--- NOTE | 2018-12-26 07:51 | OPERATIVE REPORT 1 ---
EVENT DATE: December 26, 2018 SURGEON: Wale Ayala MD ANESTHESIOLOGIST: Catracho Agruelles MD ANESTHESIA: LMA. [employer] NETWORK ARCHITECT: Bo Bernal PA-C PREOPERATIVE DIAGNOSIS Retained syndesmotic hardware screws, right ankle. POSTOPERATIVE DIAGNOSIS Retained syndesmotic hardware screws, right ankle. PROCEDURE PERFORMED Hardware removal of syndesmotic screws, right ankle x2. ESTIMATED BLOOD LOSS Minimal. COMPLICATIONS None. DRAINS None. SPECIMENS None. IMPLANTS None. TOURNIQUET TIME Zero. Fluoroscopy was utilized for the case. HISTORY Ms. Dixon is a 33-year old female who previously underwent ORIF of an open ankle fracture/dislocation with syndesmosis. Following discussion, risks, benefits, alternatives and possible complications, we discussed hardware removal of syndesmotic screw so there was no break of the screws. She wished to proceed with hardware removal. DESCRIPTION OF PROCEDURE Patient was brought to the operating room and placed on the operating table in supine position. A proper time-out was performed, identifying patient along with surgery and surgical procedure. Patient was given preoperative IV antibiotics and underwent LMA anesthesia. The right lower extremity was then double prepped and draped in orthopedic fashion. Once complete, fluoroscopic visualization was utilized to identify the syndesmotic screw. A small poke hole with 15 blade scalpel was made through the skin and blunt dissection was performed down to both screw heads. Both screws were removed until they were engaged into the fibula and then a live Cotton test was performed. The syndesmosis appeared to be stable. There was no diastasis of the mortise or syndesmosis. The hardware was completely removed and the wound copiously irrigated. The incision site was closed with 4-0 Monocryl. Standard postoperative soft dressing was applied. Ms. Dixon tolerated the procedure well, was extubated and transferred to the PACU in standard condition. She will be weightbearing as tolerated. Followup with me in 10 to 14 days. MTDD
[2018-12-26] MEDS ORDERED: IBUP800T37 PO (07:59)
[2018-12-26] MEDS ORDERED: CEPH500T7 PO (08:05)
--- NOTE | 2018-12-26 11:16 | RADIOLOGY IMAGING REPORT ---
FACILITY: [facility] - [place] PATIENT NAME: Samantha Dixon : 1985 MR: [id number] V: [id number] EXAM DATE: ORDERING PHYSICIAN: MONICA MORAES TECHNOLOGIST: Location: [facility] Patient: Samantha Dixon : 1985 Visit/Account:[id number] Date of Sevice: 12/26/2018 Exam: C-ARM FLUORO 1 HR Indication: HARDWARE REMOVAL, R ANKLE, RAD Comparison: 12/12/2018 Findings: Fluoroscopy is provided for removal of two bone screws across the tibiofibular syndesmosis Fluoroscopy time 10 seconds DOSE: DAP was 0.1056 Gy*cm2. IMPRESSION: Procedural fluoroscopy Report Dictated By: Jhonathan Wong at 12/26/2018 11:10 AM Report E-Signed By: Jhonathan Wong at 12/26/2018 11:11 AM WSN:[id number]
== END 2018-12-26 09:20 | disposition home or self-care (01) ==
LOC: OR 00:37
PROVIDERS: ATTEND Orthopaedic Surgery
DX: Z47.2 Encounter for removal of internal fixation device (principal)
CPT/HCPCS: 20680; 76000; 81025; J0690; J1100; J2001; J2405; J2704; J3010; J3490; J7050; J2795

== ENCOUNTER 2019-03-05 09:00 | Emergency (ER) | payer OTHER ==
[2018-10-13 14:25] VITALS: Wt 176.9 kg
[~2019-03-05 09:00] MED LIST changes: +IBUP800T37 PO; -ceFAZolin(*) 1 GM VIAL 3 GM in NS(*) 0.9% 100 ML BAG 100 ML IVPB ONE
--- NOTE | 2019-03-05 09:01 | ER Report ---
History and Physical Time Seen By MD: 08:57 HPI/ROS CHIEF COMPLAINT: Cat bite HISTORY OF PRESENT ILLNESS: Patient is a 33-year-old female here with complaints of a left 2nd digit distal cat bite after attempting to clear her cats throat while the cat was choking. The cat was fully vaccinated against rabies, it was her cat. The cat apparently in this incident and is being tested for rabies however since the cat's rabies status is known based on immunizations, patient will not be treated for rabies. The puncture wound is located on the dorsum of the distal left 2nd digit. REVIEW OF SYSTEMS: Constitutional: No fever, no chills. Musculoskeletal: Mild edema of the distal left 2nd digit Skin: Puncture wound present at the same site of the above Neurological: Neurovascular exam intact Allergies: Coded Allergies: No Known Allergies (Verified Allergy, Unknown, 10/12/18) Home Meds Reported Medications Glucosamine Sulfate 2KCL (GLUCOSAMINE) 1,000 Mg Tablet, 1000 MG PO 03/05/19 Calcium Carbonate (CALCIUM) 500 Mg Tablet, 500 MG PO 03/05/19 Ibuprofen (IBUPROFEN) 800 Mg Tablet, 1 TAB PO Q8H PRN for PAIN, TAB OTC. PLEASE TAKE WITH FOOD. 12/26/18 Ferrous Sulfate, Dried (IRON) 159 Mg Tablet.er, 159 MG PO QDAY 10/12/18 Oxcarbazepine (OXCARBAZEPINE) 300 Mg Tablet, 300 MG PO QDAY 10/12/18 Multivitamin (DAILY MULTIPLE VITAMIN) 1 Each Tablet, 1 EACH PO 10/04/14 Citalopram Hydrobromide (CITALOPRAM HBR) 20 Mg Tablet, 40 MG PO QDAY, #5 TAB TAKE 1 TABLET BY MOUTH EVERY DAY 10/04/14 Discontinued Reported Medications Cephalexin 500 Mg Tab (KEFLEX 500 MG TAB) 500 Mg Tablet, 500 MG PO QID for 5 Days, #28 TAB 12/26/18 Hx Smoking: No Smoking Status: Never Smoker Hx Substance Use Disorder: No Hx Alcohol Use: No Constitutional Vital Sign - Last 24 Hours 03/05/19 09:04 Temp 98.2 Pulse 69 Resp 16 B/P (MAP) 146/77 Pulse Ox 93 O2 Delivery Room Air Physical Exam General Appearance: The patient is alert, has no immediate need for airway protection and no signs of toxicity. Neurological: Neurovascular exam intact in the distal digit Skin: Small puncture wound present on the dorsum of the left 2nd digit proximal to the nail Musculoskeletal: Mild edema of the left 2nd distal dorsal digit [ ] DIFFERENTIAL DIAGNOSIS: After history and physical exam differential diagnosis was considered for fracture, animal bite, contusion Medical Decision Making ED Course/Re-evaluation ED Course Patient is a 33-year-old female here with complaints of a cat bite from a domesticated cat which she owned who is currently . Rabies immunization was up-to-date. Digit was soaked and chlorhexidine rinse. Patient was started on Augmentin for prophylaxis due to the high incidence of Infections. Return precautions were provided. Close PCP follow-up for reevaluation recommended. Decision to Disposition Date: Mar 05, 2019 Decision to Disposition Time: 09:16 Depart Departure Latest Vital Signs Vital Signs Date Time Temp Pulse Resp B/P (MAP) Pulse Ox O2 Delivery O2 Flow Rate FiO2 03/05/19 09:04 98.2 69 16 146/77 93 Room Air Impression: Primary Impression: Cat bite involving extremity Condition: Improved Disposition: HOME OR SELF-CARE Referrals: CAIT ALFONSO (PCP) New Scripts Amoxicillin/Pot Clav 875-125 Mg Tab (AUGMENTIN 875-125 TABLET) 1 Each Tablet 1 TAB PO Q12H for 7 Days, #14 TAB Prov: ALEXUS DIA DO 03/05/19 Patient Instructions: Animal Bite (ED) Additional Instructions: Please take Augmentin 1 tablet twice daily for 7 days for prophylaxis of infection. Please return promptly if you develop redness, increased swelling, drainage, fevers or chills, worsening pain. Please follow-up with your family care provider in the next 3-5 days for reevaluation ALEXUS DIA DO Mar 05, 2019 09:01
[2019-03-05 09:04] VITALS: BP 146/77
[2019-03-05] MEDS ORDERED: GLUC100026 PO (09:10)
[2019-03-05] MEDS ORDERED: CALC500T6 PO (09:10)
[2019-03-05] MEDS ORDERED: AMOX-559 PO (09:21)
== END 2019-03-05 10:10 | disposition home or self-care (01) ==
LOC: ER 09:23
DX: S61.231A Puncture wound without foreign body of left index finger without damage to nail, initial encounter (principal)
CPT/HCPCS: 99281